=== PATIENT | female | born 2000 | race Caucasian/White ===

== ENCOUNTER 2022-10-11 08:08 | Outpatient (CLI) | payer BC | END 2022-10-11 08:09 | disposition home or self-care (01) | LOC: CSHULT 08:08 | PROVIDERS: ATTEND Internal Medicine Gastroenterology | DX: K21.9 Gastro-esophageal reflux disease without esophagitis (principal); T78.1XXA Other adverse food reactions, not elsewhere classified, initial encounter; K58.9 Irritable bowel syndrome, unspecified; F42.9 Obsessive-compulsive disorder, unspecified; E03.9 Hypothyroidism, unspecified | CPT/HCPCS: 76700 ==